=== PATIENT | female | born 1990 | race Caucasian/White ===

== ENCOUNTER 2016-09-19 19:21 | Emergency (ER) | payer SELFPAY ==
[2016-09-19 19:25] VITALS: BP 125/65; BMI 30.1
--- NOTE | 2016-09-19 20:24 | DR.EXTPAIN ---
HPI - Time seen Time seen: 20:20 - PCP Primary Care Physician: NFD - Complaint/Symptoms Chief Complaint:: PT STATES SHE HAS AN ABCESS ON HER VAGINA FOR TWO WEEKS. - Source History Provided: Patient - Mode of arrival Mode of Arrival: Ambulatory - Timing Onset of Chief Complaint: 09/05/16 PMH - PMH Past Medical History: No Past Surgical History: No Surgical History: - Family History History of Family Medical Conditions: Yes Family Medical History: Diabetes Mellitus, [place], Hypertension - Social History Alcohol Use: None Do you use any recreational Drugs:: No Lives With: Alone Lives Where: Home - infectious screening In the last 2 months have you had wt loss of >10#?: NO Have you had fever, night sweats or hemotysis?: No Have you traveled outside the country in the last 6 months?: No Isolation: Standard ROS - Review of Systems Eyes: No Symptoms Reported ENTM: No Symptoms Reported Respiratoy: No Symptoms Reported Cardiovascular: No Symptoms Reported Gastrointestinal/Abdominal: No Symptoms Reported Genitourinary: No Symptoms Reported Neurological: No Symptoms Reported Musculoskeletal: No Symptoms Reported Integumentary: No Symptoms Reported Hematologic/Lymphatic: No Symptoms Reported Endocrine: No Symptoms Reported Psychiatric: No Symptoms Reported All Other Systems: Reviewed and Negative PE - Vital Signs Vitals: Temperature 98.3 F Pulse Rate 57 Respiratory Rate 20 Blood Pressure [Left Arm] 119/68 Blood Pressure [Right Arm] 110/51 Blood Pressure 125/65 O2 Sat by Pulse Oximetry 100 - General Limitations: No Limitations General Appearance: Alert, In No Apparent Distress - Head Head Exam: Normal Inspection, Atraumatic - Eyes Eye exam: Normal Appearance, PERRL, EOMI - ENT ENT Exam: Normal Exam - Neck Neck Exam: Normal Inspection, Full ROM, Trachea Midline - Chest Chest Inspection: Normal Inspection - Respiratory Respiratory Exam: Normal Lung Sounds Bilat Respiratory Exam: Bilateral Clear to Auscultation - Cardiovascular Cardiovascular Exam: Regular Rate, Normal Rhythm - Abdominal Exam Abdominal Exam: Normal Inspection, Normal Bowel Sounds Abdominal Tenderness: negative: RUQ, RLQ, LUQ, LLQ, Epigastrium, Suprapubic, Diffuse, Mild, Moderate, Severe, Other - Extremities Extremities Exam: Normal Inspection, Full ROM - Upper Extremities Shoulder Exam: Normal Inspection Arm Exam: Normal Inspection, Full ROM Elbow Exam: Normal Inspection Forearm Exam: Normal Inspection Hand Exam: Normal Inspection, Tenderness Neuromotor Exam: Normal Exam Neurosensory Exam: Normal Exam Hand Tendon Exam: Flexor Digitorium Profundus (Location) Upper Ext. Vascular Exam: Capillary Refill, Radial Pulse - Lower Extremities Hip/Pelvis Exam: Normal Inspection, Full ROM Upper Leg Exam: Normal Inspection Knee Exam: Normal Inspection Lower Leg Exam: Normal Inspection Ankle Exam: Normal Inspection Foot/Toe Exam: Normal Inspection Neurovascular/Tendon Exam: Normal Capillary Refill Gait Exam: Observed and Normal - Back Back Exam: Normal Inspection, Full ROM - Neurological Neurological Exam: Alert, Oriented X3, CN II-XII Intact - Psychiatric Psychiatric Exam: Normal Affect, Normal Mood - Skin Skin Exam: Warm, Dry, Intact, Other (There is firm nodule left lateral moms pubis, non erythematous, tender) - Diagnosis Discharge Problem: Carbuncle - Discharge Plan Condition: Stable - Follow ups/Referrals Follow ups/Referrals: NFD,None [Primary Care Provider] - 3 days - Instructions
== END 2016-09-19 20:33 | disposition home or self-care (01) ==
LOC: ER 19:31
DX: L02.93 Carbuncle, unspecified (principal)
CPT/HCPCS: 99281; 99282

== ENCOUNTER 2017-06-21 04:53 | Emergency (ER) | payer OTHER ==
[2017-06-21 05:03] VITALS: BP 118/78; BMI 30.4
[2017-06-21 06:07] LABS: BILIRUBIN,URINE NEGATIVE (NEGATIVE); BLOOD/HEMOGLOBIN,URINE 2+ (NEGATIVE); GLUCOSE, URINE NEGATIVE (NEGATIVE); KETONES,URINE NEGATIVE (NEGATIVE); LEUKOCYTE ESTERASE ,URINE 3+ (NEGATIVE); NITRITES,URINE NEGATIVE (NEGATIVE); PH,URINE 6.5 (5.0 - 8.0); PROTEIN,URINE 4+ (NEGATIVE); UROBILINOGEN,URINE 2+ (NORMAL)
[2017-06-21 06:20] LABS: AMORPHOUS SEDIMENT,UR 2+ /HPF (NEGATIVE); APPEARANCE,URINE HAZY (CLEAR); BACTERIA,URINE TRACE /HPF (NEGATIVE); COLOR,URINE YELLOW (YELLOW); MUCUS,URINE MODERATE /HPF (NEGATIVE); SQUAMOUS EPITHELIAL CELL,UR MANY /HPF (NEGATIVE); TRICHOMONAS,URINE MODERATE /HPF (NEGATIVE)
[2017-06-21] MEDS ORDERED: BRETHINE INJ 1 MG VIAL SC ONE ×2 (06:34→06:51)
[2017-06-21] MEDS ORDERED: NS 1000 ML 1,000 ML ONE (06:34)
[2017-06-21] MEDS ORDERED: FLAGYL IV PREMIX 500 MG BAG 500 MG/100 ML BAG IV ONE ×2 (06:35→06:51)
[2017-06-21] MEDS ORDERED: NS 1000 ML 1,000 ML IV ONE (06:51)
--- NOTE | 2017-06-21 09:12 | DR.GENAD ---
HPI - PCP Primary Care Physician: SATISH - Complaint/Symptoms Chief Complaint:: PT STATES" I STARTED BLEEDING I WOKE UP AND HAD BLOOD IN MY UNDERWEAR. THE BABY WAS MOVING YESTERDAY BUT I HAVN'T FELT HIM MOVE TONIGHT" - Source History Provided: Patient - Mode of Arrival Mode of Arrival: Ambulatory - Timing Onset of Chief Complaint: 06/19/17 PMH - PMH Past Medical History: Yes Past Medical History: Anemia Past Surgical History: Yes Surgical History: - Family History History of Family Medical Conditions: Yes Family Medical History: Diabetes Mellitus, [place], Hypertension - Social History Does any household member use tobacco: No Alcohol Use: None Do you use any recreational Drugs:: No Lives With: Family Lives Where: Home - infectious screening In the last 2 months have you had wt loss of >10#?: NO Have you had fever, night sweats or hemotysis?: No Have you traveled outside the country in the last 6 months?: No Isolation: Standard PE - Vital Signs Vitals: Temperature 97.9 F Pulse Rate 61 Respiratory Rate 18 Blood Pressure [Left Arm] 119/68 Blood Pressure [Right Arm] 110/51 Blood Pressure 118/78 O2 Sat by Pulse Oximetry 100 ROR - Labs Reviewed Laboratory: Specimen Type Clean catch urine 06/21/17 05:51 Urine Color Yellow (YELLOW) 06/21/17 05:51 Urine Appearance Hazy (CLEAR) 06/21/17 05:51 Urine pH 6.5 (5.0 - 8.0) 06/21/17 05:51 Ur Specific Anderson 1.015 (1.000-1.030) 06/21/17 05:51 Urine Protein 4+ (NEGATIVE) 06/21/17 05:51 Urine Glucose (UA) Negative (NEGATIVE) 06/21/17 05:51 Urine Ketones Negative (NEGATIVE) 06/21/17 05:51 Urine Occult Blood 2+ (NEGATIVE) 06/21/17 05:51 Urine Nitrite Negative (NEGATIVE) 06/21/17 05:51 Urine Bilirubin Negative (NEGATIVE) 06/21/17 05:51 Urine Urobilinogen 2+ (NORMAL) 06/21/17 05:51 Ur Leukocyte Esterase 3+ (NEGATIVE) 06/21/17 05:51 Urine RBC 10-20 /HPF (NONE SEEN) 06/21/17 05:51 Urine WBC 5-10 /HPF (NONE SEEN) 06/21/17 05:51 Ur Squamous Epith Cells Many /HPF (NEGATIVE) 06/21/17 05:51 Amorphous Sediment 2+ /HPF (NEGATIVE) 06/21/17 05:51 Urine Bacteria Trace /HPF (NEGATIVE) 06/21/17 05:51 Urine Mucus Moderate /HPF (NEGATIVE) 06/21/17 05:51 Urine Trichomonas Moderate /HPF (NEGATIVE) 06/21/17 05:51 Ur Culture Indicated? No/not indicated 06/21/17 05:51 - Discharge Plan Disposition: HOME, SELF-CARE Condition: Stable Prescriptions: Metronidazole [Flagyl Tab 500 mg] 500 mg PO QID 5 Days tab - Follow ups/Referrals Follow ups/Referrals: MESERET COVARRUBIAS [Primary Care Provider] - 3 days - Instructions Instructions: Floyd Alvares Contractions, Trichomoniasis, Preventing Sexually Transmitted Infections, Adult Additional Instructions: MAKE SURE TO TAKE ALL ANTIBIOTICS PRESCRIBED RETURN TO ER IF CONTRACTIONS INCREASE GREATER THAN 10 PER HOUR. IF WATER BREAKS OR HEAVY BLEEDING OCCURS RETURN TO ER. MAKE SURE THAT ALL SEXUAL PARTNERS ARE TREATED AND NO SEXUAL ACTIVITY UNTIL FINISHED WITH ANTIBIOTICS
== END 2017-06-21 07:47 | disposition home or self-care (01) ==
LOC: ER 04:53
DX: O60.02 Preterm labor without delivery, second trimester (principal); A59.9 Trichomoniasis, unspecified
CPT/HCPCS: 81001; 96365; 96372; 96374; 96375; 99284; A4222; S0030; J3105

== ENCOUNTER 2017-06-29 05:33 | Inpatient (IN) | payer OTHER ==
[2017-06-29 05:57] VITALS: BMI 30.4
[2017-06-29 06:13] LABS: BILIRUBIN,URINE NEGATIVE (NEGATIVE); BLOOD/HEMOGLOBIN,URINE 2+ (NEGATIVE); GLUCOSE, URINE NEGATIVE (NEGATIVE); KETONES,URINE NEGATIVE (NEGATIVE); LEUKOCYTE ESTERASE ,URINE 3+ (NEGATIVE); NITRITES,URINE NEGATIVE (NEGATIVE); PROTEIN,URINE 4+ (NEGATIVE); UROBILINOGEN,URINE 1+ (NORMAL)
--- NOTE | 2017-06-29 06:17 | DR.GENAD ---
HPI - PCP Primary Care Physician: florian - Complaint/Symptoms Chief Complaint:: contractions - Source History Provided: Patient - Mode of Arrival Mode of Arrival: Ambulatory - Timing Onset of Chief Complaint: 06/29/17 PMH - PMH Past Medical History: Yes Past Medical History: Anemia Past Surgical History: Yes Surgical History: - Family History History of Family Medical Conditions: Yes Family Medical History: Diabetes Mellitus, [place], Hypertension - Social History Does patient currently use any type of tobacco product: No Have you used tobacco products in the last 12 months: No Type of Tobacco Use: None Does any household member use tobacco: No Alcohol Use: None Do you use any recreational Drugs:: No Lives With: Family Lives Where: Home - infectious screening In the last 2 months have you had wt loss of >10#?: NO Have you had fever, night sweats or hemotysis?: No Have you traveled outside the country in the last 6 months?: No Isolation: Standard PE - Vital Signs Vitals: Temperature 98 F Pulse Rate 64 Respiratory Rate 18 Blood Pressure [Left Arm] 119/68 Blood Pressure [Right Arm] 110/51 Blood Pressure 119/75 O2 Sat by Pulse Oximetry 99 - Discharge Plan Condition: Stable - Follow ups/Referrals Follow ups/Referrals: MESERET COVARRUBIAS [Primary Care Provider] - 3 days - Instructions
[2017-06-29 06:30] LABS: APPEARANCE,URINE HAZY (CLEAR); BACTERIA,URINE TRACE /HPF (NEGATIVE); COLOR,URINE YELLOW (YELLOW); SQUAMOUS EPITHELIAL CELL,UR MANY /HPF (NEGATIVE)
[2017-06-29 06:31] LABS: AMNISURE ROM TEST NO MEMBRANES RUPTURE (NO RUPTURE)
[2017-06-29] MEDS ORDERED: LR 1000 ML IV 1,000 ML IV ONE ×2 (10:38→11:07)
[2017-06-29] MEDS ORDERED: ANCEF 1 GM IV PREMIX* 1 GM/50 ML BAG IV ONE (10:39)
[2017-06-29] MEDS ORDERED: ADRENALINE CHL INJ ONE (10:53)
[2017-06-29] MEDS ORDERED: DURAMORPH ONE (10:53)
[2017-06-29] MEDS: LR 1000 ML IV 1,000 ML IV ONE ×2 (10:56→11:15)
[2017-06-29] MEDS ORDERED: ANCEF VIAL 1 GM 1 GM in NS 50 ML IV + SPIKE MINIBAG* 50 ML IV PRN (11:00)
[2017-06-29 11:08] LABS: BASOPHILS # (AUTO) 0.1 X10^3/uL (0.0-0.1); BASOPHILS % (AUTO) 0.5 % (0.2-1.0); EOSINOPHILS % (AUTO) 0.2 % (0.9-2.9); HEMATOCRIT 33.4 % (36.0-47.0); HEMOGLOBIN 10.8 g/dL (12.0-16.0); LYMPHOCYTES # (AUTO) 1.4 X10^3/uL (1.3-2.9); LYMPHOCYTES % (AUTO) 11.1 % (21.0-51.0); MEAN CORPUSCULAR HEMOGLOBIN 22.3 pg (27.0-34.0); MEAN CORPUSCULAR HGB CONC 32.4 g/dL (33.0-35.0); MEAN CORPUSCULAR VOLUME 68.8 fL (80.0-100.0); MEAN PLATELET VOLUME 8.8 fL (7.4-11.0); MONOCYTES # (AUTO) 0.3 x10^3/uL (0.3-0.8); NEUTROPHILS % (AUTO) 86.2 % (42.0-75.0); PLATELET COUNT 210 X10^3/uL (150.0-450.0); RED BLOOD COUNT 4.86 X10^6/uL (3.5-5.4); RED CELL DISTRIBUTION WIDTH 28.7 % (11.6-16.5); WHITE BLOOD COUNT 12.8 X10^3/uL (3.6-10.0)
[2017-06-29 11:19] LABS: ANISOCYTOSIS 3+; HYPOCHROMASIA 1+; MICROCYTOSIS 1+; PLATELET MORPHOLOGY COMMENT NORMAL (NORMAL)
[2017-06-29] MEDS: D5 1/2 NS 1L W PITOCIN 20 UNITS/L 20 UNITS/1,000 ML BAG IV ONE ×3 (11:19→11:39)
[2017-06-29 11:52] LABS: ALANINE AMINOTRANSFERASE 13 Units/L (12-78); ALBUMIN 2.3 g/dL (3.4-5.0); ALKALINE PHOSPHATASE 144 Units/L (46-116); ASPARTATE AMINO TRANSFERASE 17 Units/L (15-37); BLOOD UREA NITROGEN 7 mg/dL (7-18); CALCIUM 7.9 mg/dL (8.5-10.1); CHLORIDE 101 mmol/L (98-107); COR CA(FOR HYPOALB) 9.3 mg/dL (8.5-10.1); CREATININE 0.49 mg/dL (0.55-1.02); SODIUM 133 mmol/L (136-145); TOTAL PROTEIN 6.7 g/dL (6.4-8.2); eGFR BLACK RACES > 60 (>60); eGFR NON BLACK RACES > 60 (>60)
[2017-06-29] MEDS ORDERED: PHENERGAN INJ 25 MG IVP PRN (12:15)
[2017-06-29] MEDS ORDERED: ZOFRAN INJ 4 MG VIAL IVP PRN ×2 (12:15→12:37)
[2017-06-29] MEDS ORDERED: REGLAN INJ 10 MG VIAL IVP PRN ×2 (12:15→12:37)
[2017-06-29] MEDS ORDERED: BENADRYL INJ 50 MG VIAL IVP PRN ×2 (12:15→12:37)
[2017-06-29] MEDS: TORADOL 30 MG VIAL ONE ×2 (12:22→12:39)
[2017-06-29] MEDS ORDERED: ADACEL TDaP IM ONE (12:37)
[2017-06-29] MEDS ORDERED: PERCOCET TAB 5/325 MG PO PRN (12:37)
[2017-06-29] MEDS ORDERED: NARCAN INJ IVP PRN (12:37)
[2017-06-29] MEDS ORDERED: TORADOL 30 MG VIAL IVP PRN (12:37)
[2017-06-29] MEDS ORDERED: D5 1/2 NS 1000 ML 1,000 ML with PITOCIN 20 UNITS IV SCH ×2 (13:00)
[2017-06-29] MEDS: FERROUS GLUCONATE PO SCH ×2 (13:33→18:10)
[2017-06-29] MEDS ORDERED: PITOCIN ONE (15:22)
[2017-06-29] MEDS ORDERED: XYLOCAINE 2 % (PLAIN) ONE (15:22)
[2017-06-29] MEDS ORDERED: DIPRIVAN VIAL ONE (15:22)
[2017-06-29] MEDS ORDERED: MARCAINE SPINAL ONE (15:22)
[2017-06-29] MEDS ORDERED: ZOFRAN INJ 4 MG VIAL ONE (15:22)
[2017-06-29] MEDS: ZANTAC PO SCH (21:27)
[2017-06-30] MEDS: FERROUS GLUCONATE PO SCH ×2 (06:33→16:08)
[2017-06-30 06:35] LABS: HEMATOCRIT 28.9 % (36.0-47.0); HEMOGLOBIN 9.4 g/dL (12.0-16.0)
[2017-06-30] MEDS ORDERED: PERCOCET TAB 5/325 MG PO PRN (07:15)
[2017-06-30] MEDS: ZANTAC PO SCH ×2 (08:30→21:11)
[2017-06-30] MEDS: MYLICON TAB 80 MG CHEW PO PRN ×2 (08:30→21:11)
[2017-06-30] MEDS: COLACE CAP 100 MG PO SCH ×2 (08:30→21:11)
[2017-06-30] MEDS: PRENATAL PLUS PO SCH (08:30)
[2017-06-30] MEDS: MOTRIN TAB 800 MG PO PRN ×2 (12:18→22:56)
[2017-06-30] MEDS: BACTROBAN OINT TOP SCH ×2 (14:30→21:11)
[2017-07-01] MEDS: BACTROBAN OINT TOP SCH (06:11)
[2017-07-01] MEDS: FERROUS GLUCONATE PO SCH (06:11)
[2017-07-01 08:48] VITALS: BP 131/69
[2017-07-01] MEDS: ZANTAC PO SCH (10:14)
[2017-07-01] MEDS: COLACE CAP 100 MG PO SCH (10:14)
[2017-07-01] MEDS: PRENATAL PLUS PO SCH (10:14)
== END 2017-07-01 11:33 | disposition home or self-care (01) | DRG 766 ==
LOC: ER 05:33 → LD 11:00 → MED/SURG 12:48
PROVIDERS: ADMIT Specialist; ATTEND Specialist
PROC: 10D00Z1 Extraction of Products of Conception, Low, Open Approach (ICD-10-PCS; principal; 2017-06-29 11:45)
DX: O99.013 Anemia complicating pregnancy, third trimester (principal); O99.824 Streptococcus B carrier state complicating childbirth; D50.8 Other iron deficiency anemias; B95.1 Streptococcus, group B, as the cause of diseases classified elsewhere; O34.211 Maternal care for low transverse scar from previous cesarean delivery; N85.8 Other specified noninflammatory disorders of uterus; Z37.0 Single live birth; Z3A.39 39 weeks gestation of pregnancy
CPT/HCPCS: 36415; 80053; 80307; 81001; 84112; 85014; 85018; 85025; 86592; 86850; 86900; 86901; 87086; 96365; 99284; A4222; S0197; G0434; J0170; J0690; J1200; J1885; J2001; J2405; J2590; J3490; J7120

== ENCOUNTER 2019-11-21 13:17 | Observation (INO) ==
[2019-11-21 13:23] VITALS: BMI 30.1
[2019-11-21] MEDS ORDERED: CATAPRES TAB 0.2 MG PO ONE (13:39)
--- NOTE | 2019-11-21 13:39 | DR.GENAD ---
HPI Time Seen Time Seen by Provider: 11/21/19 13:32 PCP Primary Care Physician: dorina Complaint/Symptoms Chief Complaint:: PT C/O 2 DAYS OF GENERALIZED SWELLING INTO LEGS TO THE POINT SHE COULDN'T GET OUT OF BED. THE SWELLING IN HER LEGS WENT AWAY TODAY AND THEN THIS MORNING SHE WOKE UP WITH SWELLING TO THE RIGHT SIDE OF HER FACE. COVID-19 Coronavirus risk:travel/contact w/high risk person: No Has patient experienced Coronavirus symptoms: No Source History Provided: Patient Mode of Arrival Mode of Arrival: Ambulatory Timing Onset of Chief Complaint: 11/21/19 Came on: Gradually Duration Duration: Constant (right face swelling) How lon Duration: Days Location Location: right face Severity Severity: Mild Modifying Factors Worsens:: unknown Associated Signs and Symptoms Associated Signs and Symptoms: none PMH PMH Past Medical History: Yes Past Medical History: Anemia Past Medical History Comment: HEART MURMUR Past Surgical History: Yes Surgical History: Family History History of Family Medical Conditions: Yes Family Medical History: Diabetes Mellitus, [place], Coronary Artery Disease and Hypertension Social History Does patient currently use any type of tobacco product: No Have you used tobacco products in the last 12 months: No Type of Tobacco Use: None Does any household member use tobacco: No Alcohol Use: None Do you use any recreational Drugs:: No Lives With: Alone Lives Where: Home Travel Risk Coronavirus risk:travel/contact w/high risk person: No Has patient experienced Coronavirus symptoms: No Infectious screening In the last 2 months have you had wt loss of >10#?: NO Have you had fever, night sweats or hemotysis?: No Have you traveled outside the country in the last 6 months?: No Isolation: Standard ROS Review of Systems Constitutional: No Symptoms Reported Eyes: No Symptoms Reported ENTM: No Symptoms Reported and See HPI (right face swelling) Respiratoy: No Symptoms Reported Cardiovascular: No Symptoms Reported Gastrointestinal/Abdominal: No Symptoms Reported Genitourinary: No Symptoms Reported Neurological: No Symptoms Reported Musculoskeletal: No Symptoms Reported Integumentary: No Symptoms Reported Hematologic/Lymphatic: No Symptoms Reported Endocrine: No Symptoms Reported Psychiatric: No Symptoms Reported All Other Systems: Reviewed and Negative PE Vital Signs Vitals: Temperature 97.9 F Pulse Rate 89 Respiratory Rate 20 Blood Pressure [Left Arm] 155/89 Blood Pressure [Right Arm] 128/67 Blood Pressure 180/81 O2 Sat by Pulse Oximetry 98 General Limitations: No Limitations General Appearance: Alert and In No Apparent Distress Head Head Exam: Normal Inspection, Atraumatic and Normocephalic Eyes Eye exam: Normal Appearance and EOMI ENT ENT Exam: Normal Exam, Normal Oropharynx, Normal External Ear Exam and Mucous Membranes Moist External Ear Exam: Normal External Inspection Nose Exam: Normal Nose Exam Mouth Exam: Normal Inspection; negative Tongue Elevation and Tongue Swelling Throat Exam: Normal Inspection Neck Neck Exam: Normal Inspection, Full ROM and Trachea Midline Chest Chest Inspection: Normal Inspection Respiratory Respiratory Exam: Normal Lung Sounds Bilat Respiratory Exam: Bilateral: Clear to Auscultation Cardiovascular Cardiovascular Exam: Regular Rate Abdominal Exam Abdominal Exam: Normal Inspection Extremities Extremities Exam: Normal Inspection and Full ROM Back Back Exam: Normal Inspection Neurologic Neurological Exam: Alert, Oriented X3 and CN II-XII Intact Psychiatric Psychiatric Exam: Normal Affect Skin Skin Exam: Normal Color and Other (right face swelling) COURSE Consultation Called: 14:56 Call Returned: 14:56 Consultation Comments: case discussed with DR. Stanford admit for 2 units PRBC, get anemia panel and give [id number]. ROR Labs Reviewed Result Diagrams: 11/21/19 14:07 11/21/19 14:07 Laboratory: WBC 6.7 X10^3/uL (3.6-10.0) 11/21/19 14:07 RBC 3.49 X10^6/uL (3.5-5.4) L 11/21/19 14:07 Hgb 6.8 g/dL (12.0-16.0) L* 11/21/19 14:07 Hct 21.8 % (36.0-47.0) L 11/21/19 14:07 MCV 62.6 fL (80.0-100.0) L 11/21/19 14:07 MCH 19.5 pg (27.0-34.0) L 11/21/19 14:07 MCHC 31.2 g/dL (33.0-35.0) L 11/21/19 14:07 RDW 19.3 % (11.6-16.5) H 11/21/19 14:07 Plt Count 247 X10^3/uL (150.0-450.0) 11/21/19 14:07 Plt Count Comment Adequate (ADEQUATE) 11/21/19 14:07 MPV 8.6 fL (7.4-11.0) 11/21/19 14:07 Neut % (Auto) 60.0 % (42.0-75.0) 11/21/19 14:07 Lymph % (Auto) 29.7 % (21.0-51.0) 11/21/19 14:07 [place] % (Auto) 5.9 % (0.0-13.0) 11/21/19 14:07 Eos % (Auto) 3.6 % (0.9-2.9) H 11/21/19 14:07 Baso % (Auto) 0.8 % (0.2-1.0) 11/21/19 14:07 Neut # (Auto) 4.0 x10^3/uL (2.2-4.8) 11/21/19 14:07 Lymph # (Auto) 2.0 X10^3/uL (1.3-2.9) 11/21/19 14:07 [place] # (Auto) 0.4 x10^3/uL (0.3-0.8) 11/21/19 14:07 Eos # (Auto) 0.2 x10^3/uL (0.0-0.2) 11/21/19 14:07 Baso # (Auto) 0.1 X10^3/uL (0.0-0.1) 11/21/19 14:07 Absolute Nucleated RBC 0.0 /100WBC 11/21/19 14:07 Plt Morphology Comment Normal (NORMAL) 11/21/19 14:07 RBC Morphology Abnormal (NORMAL) A 11/21/19 14:07 Hypochromasia 3+ A 11/21/19 14:07 Microcytosis 2+ A 11/21/19 14:07 Sodium 140 mmol/L (136-145) 11/21/19 14:07 Corrected Sodium TNP 11/21/19 14:07 Potassium 4.0 mmol/L (3.5-5.1) 11/21/19 14:07 Chloride 108 mmol/L (98-107) H 11/21/19 14:07 Carbon Dioxide 26.2 mmol/L (21-32) 11/21/19 14:07 BUN 11 mg/dL (7-18) 11/21/19 14:07 Creatinine 0.71 mg/dL (0.55-1.02) 11/21/19 14:07 Est GFR (MDRD) Af Amer > 60 (>60) 11/21/19 14:07 Est GFR (MDRD) Non-Af > 60 (>60) 11/21/19 14:07 Glucose 84 mg/dL (65-99) 11/21/19 14:07 Calcium 8.2 mg/dL (8.5-10.1) L 11/21/19 14:07 Corrected Calcium 10.1 mg/dL (8.5-10.1) 11/21/19 14:07 Iron 15 ug/dL (50-175) L 11/21/19 14:07 Transferrin 199 mg/dL (202-364) L 11/21/19 14:07 Ferritin 6 ng/mL (8-252) L 11/21/19 14:07 Total Bilirubin 0.10 mg/dL (0.2-1.0) L 11/21/19 14:07 AST 22 Units/L (15-37) 11/21/19 14:07 ALT 15 Units/L (12-78) 11/21/19 14:07 Alkaline Phosphatase 50 Units/L (46-116) 11/21/19 14:07 Total Protein 5.4 g/dL (6.4-8.2) L 11/21/19 14:07 Albumin 1.6 g/dL (3.4-5.0) L 11/21/19 14:07 Globulin 3.8 g/dL (2.5-4.5) 11/21/19 14:07 Albumin/Globulin Ratio 0.4 Ratio (1.1-2.1) L 11/21/19 14:07 Vitamin B12 444 pg/mL (193-986) 11/21/19 14:07 Folate 11.5 ng/mL (>8.6) 11/21/19 14:07 Opioid Opioid Risk Tool Age (Aaron box if 16-45): Yes History of Preadolescent Sexual Abuse: No Total: 1 Total Score Risk Category: Low Risk Copyright: Felix FABIAN predicting aberrant behaviors Instructions Forms: Precautions for COVID19 Patient Portal Social Distancing
[2019-11-21] MEDS ORDERED: LASIX PO ONE (13:40)
[2019-11-21] MEDS ORDERED: LASIX ONE (13:42)
[2019-11-21] MEDS ORDERED: CATAPRES TAB 0.2 MG ONE (13:42)
[2019-11-21 14:27] LABS: BASOPHILS # (AUTO) 0.1 X10^3/uL (0.0-0.1); BASOPHILS % (AUTO) 0.8 % (0.2-1.0); EOSINOPHILS # (AUTO) 0.2 x10^3/uL (0.0-0.2); EOSINOPHILS % (AUTO) 3.6 % (0.9-2.9); HEMATOCRIT 21.8 % (36.0-47.0); LYMPHOCYTES % (AUTO) 29.7 % (21.0-51.0); MEAN CORPUSCULAR HEMOGLOBIN 19.5 pg (27.0-34.0); MEAN CORPUSCULAR HGB CONC 31.2 g/dL (33.0-35.0); MEAN CORPUSCULAR VOLUME 62.6 fL (80.0-100.0); MEAN PLATELET VOLUME 8.6 fL (7.4-11.0); MONOCYTES # (AUTO) 0.4 x10^3/uL (0.3-0.8); MONOCYTES % (AUTO) 5.9 % (0.0-13.0); PLATELET COUNT 247 X10^3/uL (150.0-450.0); RED BLOOD COUNT 3.49 X10^6/uL (3.5-5.4); RED CELL DISTRIBUTION WIDTH 19.3 % (11.6-16.5); WHITE BLOOD COUNT 6.7 X10^3/uL (3.6-10.0)
[2019-11-21 14:36] LABS: ALANINE AMINOTRANSFERASE 15 Units/L (12-78); ALBUMIN 1.6 g/dL (3.4-5.0); ALKALINE PHOSPHATASE 50 Units/L (46-116); ASPARTATE AMINO TRANSFERASE 22 Units/L (15-37); BLOOD UREA NITROGEN 11 mg/dL (7-18); CALCIUM 8.2 mg/dL (8.5-10.1); CARBON DIOXIDE 26.2 mmol/L (21-32); CHLORIDE 108 mmol/L (98-107); COR CA(FOR HYPOALB) 10.1 mg/dL (8.5-10.1); CREATININE 0.71 mg/dL (0.55-1.02); SODIUM 140 mmol/L (136-145); TOTAL PROTEIN 5.4 g/dL (6.4-8.2); eGFR NON BLACK RACES > 60 (>60)
[2019-11-21 14:38] LABS: HEMOGLOBIN 6.8 g/dL (12.0-16.0)
[2019-11-21 14:50] LABS: HYPOCHROMASIA 3+; MICROCYTOSIS 2+; PLATELET MORPHOLOGY COMMENT NORMAL (NORMAL)
[2019-11-21] MEDS ORDERED: NS 100 ML IV 100 ML with VENOFER 400 MG IV NR ×2 (15:03)
[2019-11-21 20:29] LABS: BILIRUBIN,URINE NEGATIVE (NEGATIVE); BLOOD/HEMOGLOBIN,URINE 2+ (NEGATIVE); GLUCOSE, URINE NEGATIVE (NEGATIVE); KETONES,URINE NEGATIVE (NEGATIVE); LEUKOCYTE ESTERASE ,URINE NEGATIVE (NEGATIVE); NITRITES,URINE NEGATIVE (NEGATIVE); PROTEIN,URINE 3+ (NEGATIVE); UROBILINOGEN,URINE NORMAL (NORMAL)
[2019-11-21 20:33] LABS: APPEARANCE,URINE CLEAR (CLEAR); COLOR,URINE YELLOW (YELLOW)
[2019-11-21 20:34] LABS: BACTERIA,URINE NEGATIVE /HPF (NEGATIVE); SQUAMOUS EPITHELIAL CELL,UR NEGATIVE /HPF (NEGATIVE)
[2019-11-21] MEDS ORDERED: NS 500 ML IV 500 ML IV ONE ×2 (21:15→21:19)
[2019-11-22 06:04] LABS: BASOPHILS % (AUTO) 0.5 % (0.2-1.0); EOSINOPHILS # (AUTO) 0.4 x10^3/uL (0.0-0.2); EOSINOPHILS % (AUTO) 4.2 % (0.9-2.9); HEMATOCRIT 25.7 % (36.0-47.0); HEMOGLOBIN 8.2 g/dL (12.0-16.0); LYMPHOCYTES # (AUTO) 2.4 X10^3/uL (1.3-2.9); LYMPHOCYTES % (AUTO) 28.6 % (21.0-51.0); MEAN CORPUSCULAR HEMOGLOBIN 21.4 pg (27.0-34.0); MEAN CORPUSCULAR HGB CONC 32.1 g/dL (33.0-35.0); MEAN CORPUSCULAR VOLUME 66.7 fL (80.0-100.0); MEAN PLATELET VOLUME 8.3 fL (7.4-11.0); MONOCYTES # (AUTO) 0.4 x10^3/uL (0.3-0.8); MONOCYTES % (AUTO) 5.2 % (0.0-13.0); NEUTROPHILS # (AUTO) 5.2 x10^3/uL (2.2-4.8); NEUTROPHILS % (AUTO) 61.5 % (42.0-75.0); PLATELET COUNT 224 X10^3/uL (150.0-450.0); RED BLOOD COUNT 3.85 X10^6/uL (3.5-5.4); RED CELL DISTRIBUTION WIDTH 24.2 % (11.6-16.5); WHITE BLOOD COUNT 8.4 X10^3/uL (3.6-10.0)
[2019-11-22 06:35] LABS: ANISOCYTOSIS 2+; HYPOCHROMASIA 2+; MICROCYTOSIS 1+; PLATELET MORPHOLOGY COMMENT NORMAL (NORMAL)
[2019-11-22] MEDS ORDERED: NS 100 ML IV 100 ML with VENOFER 400 MG IV NR ×2 (08:00)
[2019-11-22] MEDS: ZESTRIL TAB 40 MG PO SCH (08:55)
[2019-11-23 06:24] LABS: BASOPHILS % (AUTO) 0.5 % (0.2-1.0); EOSINOPHILS # (AUTO) 0.3 x10^3/uL (0.0-0.2); EOSINOPHILS % (AUTO) 4.1 % (0.9-2.9); HEMATOCRIT 25.2 % (36.0-47.0); HEMOGLOBIN 8.1 g/dL (12.0-16.0); LYMPHOCYTES # (AUTO) 2.7 X10^3/uL (1.3-2.9); LYMPHOCYTES % (AUTO) 34.8 % (21.0-51.0); MEAN CORPUSCULAR HEMOGLOBIN 21.5 pg (27.0-34.0); MEAN CORPUSCULAR HGB CONC 32.3 g/dL (33.0-35.0); MEAN CORPUSCULAR VOLUME 66.5 fL (80.0-100.0); MEAN PLATELET VOLUME 8.6 fL (7.4-11.0); MONOCYTES # (AUTO) 0.4 x10^3/uL (0.3-0.8); MONOCYTES % (AUTO) 5.7 % (0.0-13.0); NEUTROPHILS # (AUTO) 4.2 x10^3/uL (2.2-4.8); NEUTROPHILS % (AUTO) 54.9 % (42.0-75.0); PLATELET COUNT 222 X10^3/uL (150.0-450.0); RED BLOOD COUNT 3.78 X10^6/uL (3.5-5.4); RED CELL DISTRIBUTION WIDTH 23.6 % (11.6-16.5); WHITE BLOOD COUNT 7.7 X10^3/uL (3.6-10.0)
[2019-11-23 06:39] LABS: ALANINE AMINOTRANSFERASE 14 Units/L (12-78); ALBUMIN 1.3 g/dL (3.4-5.0); ALKALINE PHOSPHATASE 46 Units/L (46-116); ASPARTATE AMINO TRANSFERASE 16 Units/L (15-37); BLOOD UREA NITROGEN 9 mg/dL (7-18); CALCIUM 7.8 mg/dL (8.5-10.1); CARBON DIOXIDE 25.6 mmol/L (21-32); CHLORIDE 109 mmol/L (98-107); CREATININE 0.66 mg/dL (0.55-1.02); SODIUM 141 mmol/L (136-145); TOTAL PROTEIN 4.8 g/dL (6.4-8.2); eGFR NON BLACK RACES > 60 (>60)
[2019-11-23 06:51] LABS: ANISOCYTOSIS 2+; HYPOCHROMASIA 2+; MICROCYTOSIS 1+; PLATELET MORPHOLOGY COMMENT NORMAL (NORMAL)
[2019-11-23] MEDS: ZESTRIL TAB 40 MG PO SCH (08:00)
[2019-11-23] MEDS ORDERED: NS 100 ML IV 100 ML with VENOFER 400 MG IV ONE ×2 (10:52)
[2019-11-23] MEDS: APRESOLINE TAB 25 MG PO STA ×2 (11:32→15:50)
[2019-11-23 11:56] LABS: CREATININE 24 HOUR,URINE 2.06 g/24 hr (0.67-1.59); CREATININE,URINE 66.34 mg/dL (29-226)
[2019-11-23 11:57] LABS: TOTAL PROTEIN,URINE 347.7 mg/dl (0-11.9)
[2019-11-23 12:27] LABS: CREATININE 0.66 mg/dL (0.55-1.02); CREATININE CLEARANCE,URINE 216.4 ml/min (87-107); CREATININE,URINE 66.34 mg/dL (29-226)
[2019-11-23] MEDS ORDERED: APRESOLINE TAB 25 MG ONE ×2 (15:50→19:05)
[2019-11-23] MEDS ORDERED: APRESOLINE TAB 25 MG PO ONE (15:55)
[2019-11-23 15:59] VITALS: BP 204/93
[2019-11-23] MEDS ORDERED: CATAPRES TAB 0.2 MG ONE (17:08)
[2019-11-23] MEDS ORDERED: NORCO 7.5/325 MG TAB ONE (17:14)
== END 2019-11-23 19:10 | disposition home or self-care (01) ==
LOC: ER 13:17 → MED/SURG 13:17
PROVIDERS: ADMIT Obstetrics & Gynecology Obstetrics; ATTEND Obstetrics & Gynecology Obstetrics
DX: I10 Essential (primary) hypertension; D64.9 Anemia, unspecified; R60.0 Localized edema; R53.1 Weakness

== ENCOUNTER 2021-09-26 08:25 | Inpatient (IN) ==
--- NOTE | 2021-09-26 09:26 | DR.CP ---
HPI Time Seen Time Seen by Provider: 09/26/21 09:26 PCP Primary Care Physician: none HPI Comment HPI Comment: PATIENT IS 31YR OLD FEMALE IN ER WITH LEFT SIDED CHEST PAIN RADIATING TO LEFT ARM SINCE LAST NIGHT. Complaint Chief Complaint Doctor Comments: CHEST PAIN SINCE LAST NIGHT. Chief Complaint:: chest pain since last night; my heart feels like it is pumping hard. COVID-19 Coronavirus risk:travel/contact w/high risk person: No Has patient experienced Coronavirus symptoms: No Source History Provided: Patient Mode of Arrival Mode of Arrival: Ambulatory Timing Onset of Chief Complaint: 09/25/21 PMH PMH Past Medical History: Yes Past Medical History: Anemia, Hypertension and Renal Disease Past Surgical History: Yes Surgical History: and Other Family History History of Family Medical Conditions: Yes Family Medical History: Diabetes Mellitus, [place], Coronary Artery Disease and Hypertension Social History Does patient currently use any type of tobacco product: No Have you used tobacco products in the last 12 months: No Type of Tobacco Use: None Does any household member use tobacco: No Alcohol Use: None Do you use any recreational Drugs:: No Lives With: Family Lives Where: Home Travel Risk Coronavirus risk:travel/contact w/high risk person: No Has patient experienced Coronavirus symptoms: No Infectious screening In the last 2 months have you had wt loss of >10#?: NO Have you had fever, night sweats or hemotysis?: No Have you traveled outside the country in the last 6 months?: No Isolation: Standard PE Vitals Vitals: Temperature 97.2 F Pulse Rate 52 Respiratory Rate 36 Blood Pressure [Left Arm] 190/90 Blood Pressure [Right Arm] 128/67 Blood Pressure 162/67 O2 Sat by Pulse Oximetry 100 ROR Labs Reviewed Result Diagrams: 09/26/21 09:37 09/26/21 09:37 Laboratory: WBC 6.3 X10^3/uL (3.6-10.0) 09/26/21 09:37 RBC 3.74 X10^6/uL (3.5-5.4) 09/26/21 09:37 Hgb 7.2 g/dL (12.0-16.0) L 09/26/21 09:37 Hct 22.7 % (36.0-47.0) L 09/26/21 09:37 MCV 60.8 fL (80.0-100.0) L 09/26/21 09:37 MCH 19.4 pg (27.0-34.0) L 09/26/21 09:37 MCHC 31.9 g/dL (33.0-35.0) L 09/26/21 09:37 RDW 18.7 % (11.6-16.5) H 09/26/21 09:37 Plt Count 298 X10^3/uL (150.0-450.0) 09/26/21 09:37 Plt Count Comment Adequate (ADEQUATE) 09/26/21 09:37 MPV 7.2 fL (7.4-11.0) L 09/26/21 09:37 Neut % (Auto) 57.1 % (42.0-75.0) 09/26/21 09:37 Lymph % (Auto) 33.0 % (21.0-51.0) 09/26/21 09:37 [place] % (Auto) 6.0 % (0.0-13.0) 09/26/21 09:37 Eos % (Auto) 3.0 % (0.9-2.9) H 09/26/21 09:37 Baso % (Auto) 0.9 % (0.2-1.0) 09/26/21 09:37 Neut # (Auto) 3.6 x10^3/uL (2.2-4.8) 09/26/21 09:37 Lymph # (Auto) 2.1 X10^3/uL (1.3-2.9) 09/26/21 09:37 [place] # (Auto) 0.4 x10^3/uL (0.3-0.8) 09/26/21 09:37 Eos # (Auto) 0.2 x10^3/uL (0.0-0.2) 09/26/21 09:37 Baso # (Auto) 0.1 X10^3/uL (0.0-0.1) 09/26/21 09:37 Absolute Nucleated RBC 0.0 /100WBC 09/26/21 09:37 Plt Morphology Comment Normal (NORMAL) 09/26/21 09:37 RBC Morphology Abnormal (NORMAL) A 09/26/21 09:37 Hypochromasia 3+ A 09/26/21 09:37 Poikilocytosis Slight A 09/26/21 09:37 Anisocytosis Slight A 09/26/21 09:37 Microcytosis 2+ A 09/26/21 09:37 Ovalocytes Present 09/26/21 09:37 D-Dimer 1.14 ug/ml (0.0-0.57) H 09/26/21 09:37 Sodium 139 mmol/L (136-145) 09/26/21 09:37 Corrected Sodium TNP 09/26/21 09:37 Potassium 3.6 mmol/L (3.5-5.1) 09/26/21 09:37 Chloride 107 mmol/L (98-107) 09/26/21 09:37 Carbon Dioxide 26.6 mmol/L (21-32) 09/26/21 09:37 BUN 8 mg/dL (7-18) 09/26/21 09:37 Creatinine 0.56 mg/dL (0.55-1.02) 09/26/21 09:37 Est GFR (MDRD) Af Amer > 60 (>60) 09/26/21 09:37 Est GFR (MDRD) Non-Af > 60 (>60) 09/26/21 09:37 Glucose 84 mg/dL (65-99) 09/26/21 09:37 Calcium 7.7 mg/dL (8.5-10.1) L 09/26/21 09:37 Corrected Calcium 9.5 mg/dL (8.5-10.1) 09/26/21 09:37 Iron 22 ug/dL (50-175) L 09/26/21 09:37 Transferrin 241 mg/dL (202-364) 09/26/21 09:37 Ferritin 7 ng/mL (8-252) L 09/26/21 09:37 Total Bilirubin 0.10 mg/dL (0.2-1.0) L 09/26/21 09:37 AST 21 Units/L (15-37) 09/26/21 09:37 ALT 18 Units/L (12-78) 09/26/21 09:37 Alkaline Phosphatase 58 Units/L (46-116) 09/26/21 09:37 Creatine Kinase 76 Units/L (26-192) 09/26/21 09:37 Troponin I High Sens 24.6 ng/L (4.0-60.0) 09/26/21 09:37 Total Protein 5.1 g/dL (6.4-8.2) L 09/26/21 09:37 Albumin 1.8 g/dL (3.4-5.0) L 09/26/21 09:37 Globulin 3.3 g/dL (2.5-4.5) 09/26/21 09:37 Albumin/Globulin Ratio 0.5 Ratio (1.1-2.1) L 09/26/21 09:37 Vitamin B12 520 pg/mL (193-986) 09/26/21 09:37 Folate 12.8 ng/mL (>8.6) 09/26/21 09:37 TSH 3rd Generation 2.689 uIU/mL (0.358-3.74) 09/26/21 09:37 Opioid Opioid Risk Tool Age (Aaron box if 16-45): No History of Preadolescent Sexual Abuse: No Total: 0 Total Score Risk Category: Low Risk Copyright: Felix FABIAN predicting aberrant behaviors Discharge Plan Diagnosis Discharge Problem: Chest pain, Anemia, Hypertension, Bradycardia Discharge Plan Patient Disposition: 09 ADMITTED INPATIENT Condition: Stable Orders to Discharge Patient Discharge Orders: Transfer (Routine); Ordered 09/26/21 Ordered By: GURJIT RINCON
[2021-09-26 09:50] LABS: BASOPHILS # (AUTO) 0.1 X10^3/uL (0.0-0.1); BASOPHILS % (AUTO) 0.9 % (0.2-1.0); EOSINOPHILS # (AUTO) 0.2 x10^3/uL (0.0-0.2); HEMATOCRIT 22.7 % (36.0-47.0); HEMOGLOBIN 7.2 g/dL (12.0-16.0); LYMPHOCYTES # (AUTO) 2.1 X10^3/uL (1.3-2.9); MEAN CORPUSCULAR HEMOGLOBIN 19.4 pg (27.0-34.0); MEAN CORPUSCULAR HGB CONC 31.9 g/dL (33.0-35.0); MEAN CORPUSCULAR VOLUME 60.8 fL (80.0-100.0); MEAN PLATELET VOLUME 7.2 fL (7.4-11.0); MONOCYTES # (AUTO) 0.4 x10^3/uL (0.3-0.8); NEUTROPHILS # (AUTO) 3.6 x10^3/uL (2.2-4.8); NEUTROPHILS % (AUTO) 57.1 % (42.0-75.0); RED BLOOD COUNT 3.74 X10^6/uL (3.5-5.4); RED CELL DISTRIBUTION WIDTH 18.7 % (11.6-16.5); WHITE BLOOD COUNT 6.3 X10^3/uL (3.6-10.0)
[2021-09-26] MEDS ORDERED: CATAPRES TAB 0.1 MG ONE (09:56)
[2021-09-26] MEDS ORDERED: CATAPRES TAB 0.1 MG PO ONE (09:58)
[2021-09-26 10:00] LABS: ALANINE AMINOTRANSFERASE 18 Units/L (12-78); ALBUMIN 1.8 g/dL (3.4-5.0); ALKALINE PHOSPHATASE 58 Units/L (46-116); ASPARTATE AMINO TRANSFERASE 21 Units/L (15-37); BLOOD UREA NITROGEN 8 mg/dL (7-18); CALCIUM 7.7 mg/dL (8.5-10.1); CARBON DIOXIDE 26.6 mmol/L (21-32); CHLORIDE 107 mmol/L (98-107); COR CA(FOR HYPOALB) 9.5 mg/dL (8.5-10.1); CREATINE KINASE 76 Units/L (26-192); CREATININE 0.56 mg/dL (0.55-1.02); SODIUM 139 mmol/L (136-145); TOTAL PROTEIN 5.1 g/dL (6.4-8.2); eGFR NON BLACK RACES > 60 (>60)
[2021-09-26 10:11] LABS: PLATELET MORPHOLOGY COMMENT NORMAL (NORMAL)
[2021-09-26 10:12] LABS: ANISOCYTOSIS SLIGHT; HYPOCHROMASIA 3+; MICROCYTOSIS 2+; OVALOCYTES PRESENT; POIKILOCYTOSIS SLIGHT
--- NOTE | 2021-09-26 10:20 | RAD ---
HISTORYChest painSTUDYChest AP [id number] t is within normal limits in size. Ivette are normal. Lung reynoso are clear. No pneumothorax or pleural effusion is identified. Bony thorax is unremarkable.IMPRESSIONNo significant abnormality identifiedElectronically signed by: GERMANIA CHRISTIAN (Sep 26, 2021 10:18:47)
--- NOTE | 2021-09-26 13:05 | CT ---
HISTORYelevated d dimer, chest painSTUDYCTA CHESTCOMPARISONChest radiograph from same day.TECHNIQUECTA chest protocol with axial images from the thoracic inlet to upper abdomen with IV contrast. Sagittal and coronal reformats and MIP images were created. Automated exposure control was utilized.FINDINGSThe visualized thyroid gland appears benign. Non-atherosclerotic normal caliber thoracic aorta. There is residual thymic tissue. Pulmonary artery is normal in caliber centrally. No filling defect is identified to suggest pulmonary embolism. The heart is normal in size. No pericardial effusion. No pathologic adenopathy in the thorax. Visualized upper abdomen has a benign appearance. Contrast in the renal collecting systems is noted. Bilateral cervical ribs. No acute osseous abnormality.The trachea and mainstem bronchi appear patent. No consolidation or segmental lung collapse. 3 x 2 mm lymph node adjacent to the right minor fissure image 70 series 5. There are few other small lymph nodes identified in the lungs adjacent to the pleura or fissures. Trace bilateral pleural effusions. No pneumothorax.IMPRESSIONNegative for PE. Trace bilateral pleural effusions.Residual thymic tissue is noted. Correlate for etiology of thymic hyperplasia or rebound.Electronically signed by: Quirino Esparza (Sep 26, 2021 13:03:46)
[2021-09-26 15:11] VITALS: BMI 30.1
[2021-09-26] MEDS: NS 1,000 ML IV 1,000 ML IV SCH (16:30)
[2021-09-26] MEDS: ZESTRIL TAB 40 MG PO SCH (16:30)
--- NOTE | 2021-09-26 18:00 | DR.H&P ---
H&P - History & Physical for Day of: H&P Date: 09/26/21 - Chief Complaint Chief Complaint: CHEST PAIN, ELEVATED BLOOD PRESSURE - History of Present Illness History of Present Illness: PT IS 31F, ER ADMISSION WITH CO LEFT SIDE CHEST PAIN WITH HYPERTENSIVE URGENCY. PT HAS PMH OF UNCONTROLLED HYPERTENSION AND HAS BEEN PREVIOUSLY UNDER THE CARE OF DR BARRY. PT HAS PMH OF ANEMIA. PT DENIES ANY BLOOD IN STOOL. PT DENIES FEVER OR COVID SYMPTOMS. PT ADMITTED FOR TREATMENT OF ACUTE ILLNESS - Past Medical History Past Medical History: Hypertension, Renal Disease, Anemia - Past Surgical History Surgical History: - Family History Family Medical History: Diabetes Mellitus, Heart Failure, Hypertension - Social History Does patient currently use any type of tobacco product: No Have you used tobacco products in the last 12 months: No Type of Tobacco Use: None Does any household member use tobacco: No Alcohol Use: None Drug Use: None - Medications Home Medications: No Known Drug Allergies Allergy (Verified 05/11/21 12:46) CONTINUE taking the following medications hydralazine 50 mg tablet 1 tab PO TID 09/26/21 [History] lisinopril 40 mg tablet 1 tab PO QDAY 09/26/21 [History] - Review of Systems Constitutional: Weakness, Malaise Eyes: No Symptoms Reported ENT: No Symptoms Reported Respiratory: SOB with Excertion Cardiovascular: Chest Pain, Palpitations Gastrointestinal: Other (heartburn) Genitourinary: No Symptoms Reported Musculoskeletal: No Symptoms Reported Skin: No Symptoms Reported Neurological: No Symptoms Reported - Physical Exam Vital Signs: Temperature 98.6 F Pulse Rate [Left] 61 Pulse Rate 54 Respiratory Rate 18 Blood Pressure [Left Arm] 190/90 Blood Pressure [Right Arm] 188/88 Blood Pressure 157/79 O2 Sat by Pulse Oximetry 99 Oriented: Normal Eyes: Normal Ear: Normal Nose: Normal Throat: Normal Respiratory: Clear Throughout Cardiovascular: Bradycardia, Murmur : Normal Auscultation: Bowel Sounds: Normal Palpation: Normal Tenderness: Normal Skin: Normal Musculoskeletal: Normal Psychiatric: Normal Mood Description: Calm Speech Pattern: Clear, Appropriate - Assessment/Plan (1) Hypertensive urgency Status: Acute Plan: ADMIT, CE AND EKG. CTA CHEST OBTAINED ON ADMISSION. ANEMIA PANEL, OCCULT STOOL. PPI THERAPY. TYPE AND CROSS, TRANSFUSE 2U PRBC PER PROTOCOL. BP CONTROL, CONTINUOUS CARDIAC MONITORING (2) Chest pain Status: Acute (3) Murmur, cardiac Status: Acute (4) Anemia Qualifiers: Anemia type: unspecified type Qualified Code(s): D64.9 - Anemia, unspecified Status: Acute - Allergies Allergies/Adverse Reactions: Allergies Allergy/AdvReac Type Severity Reaction Status Date / Time No Known Drug Allergies Allergy Verified 05/11/21 12:46
[2021-09-26 18:17] LABS: FREE T4 (FREE THYROXINE) 0.88 ng/dL (0.76-1.46); TSH (3RD GENERATION) 2.079 uIU/mL (0.358-3.74)
[2021-09-26] MEDS: HEMOCYTE-PLUS PO SCH (18:55)
[2021-09-26] MEDS: PROTONIX TAB 40 MG PO SCH (18:55)
[2021-09-26] MEDS ORDERED: APRESOLINE TAB 25 MG ONE (20:52)
[2021-09-26] MEDS: APRESOLINE TAB 25 MG PO SCH (21:00)
[2021-09-27] MEDS ORDERED: CATAPRES TAB 0.1 MG PO ONE (04:05)
[2021-09-27] MEDS ORDERED: CATAPRES TAB 0.1 MG ONE (04:17)
[2021-09-27] MEDS: NS 1,000 ML IV 1,000 ML IV SCH ×2 (05:12→18:42)
[2021-09-27] MEDS: APRESOLINE TAB 25 MG PO SCH ×3 (05:13→21:17)
[2021-09-27 06:12] LABS: BASOPHILS % (AUTO) 0.7 % (0.2-1.0); EOSINOPHILS # (AUTO) 0.2 x10^3/uL (0.0-0.2); EOSINOPHILS % (AUTO) 2.7 % (0.9-2.9); HEMATOCRIT 20.8 % (36.0-47.0); LYMPHOCYTES # (AUTO) 1.9 X10^3/uL (1.3-2.9); LYMPHOCYTES % (AUTO) 30.9 % (21.0-51.0); MEAN CORPUSCULAR HEMOGLOBIN 19.2 pg (27.0-34.0); MEAN CORPUSCULAR HGB CONC 31.8 g/dL (33.0-35.0); MEAN CORPUSCULAR VOLUME 60.4 fL (80.0-100.0); MEAN PLATELET VOLUME 7.5 fL (7.4-11.0); MONOCYTES # (AUTO) 0.3 x10^3/uL (0.3-0.8); MONOCYTES % (AUTO) 5.3 % (0.0-13.0); NEUTROPHILS # (AUTO) 3.7 x10^3/uL (2.2-4.8); NEUTROPHILS % (AUTO) 60.4 % (42.0-75.0); RED BLOOD COUNT 3.44 X10^6/uL (3.5-5.4); WHITE BLOOD COUNT 6.1 X10^3/uL (3.6-10.0)
[2021-09-27 06:22] LABS: ALANINE AMINOTRANSFERASE 15 Units/L (12-78); ALBUMIN 1.6 g/dL (3.4-5.0); ALKALINE PHOSPHATASE 52 Units/L (46-116); ASPARTATE AMINO TRANSFERASE 18 Units/L (15-37); BLOOD UREA NITROGEN 9 mg/dL (7-18); CALCIUM 7.5 mg/dL (8.5-10.1); CARBON DIOXIDE 24.7 mmol/L (21-32); CHLORIDE 109 mmol/L (98-107); COR CA(FOR HYPOALB) 9.4 mg/dL (8.5-10.1); CREATININE 0.53 mg/dL (0.55-1.02); MAGNESIUM 1.8 mg/dL (1.7-2.9); SODIUM 140 mmol/L (136-145); TOTAL PROTEIN 4.6 g/dL (6.4-8.2); eGFR NON BLACK RACES > 60 (>60)
[2021-09-27 06:39] LABS: HEMOGLOBIN 6.6 g/dL (12.0-16.0)
[2021-09-27 07:08] LABS: ANISOCYTOSIS SLIGHT; HYPOCHROMASIA 3+; MICROCYTOSIS 2+; OVALOCYTES PRESENT; PLATELET MORPHOLOGY COMMENT NORMAL (NORMAL); POIKILOCYTOSIS SLIGHT; SCHISTOCYTES PRESENT
[2021-09-27] MEDS ORDERED: INJECTAFER 750 MG in NS 250 ML IV 250 ML IV NR (08:00)
[2021-09-27] MEDS: APRESOLINE INJ 20 MG VIAL IVP PRN ×2 (09:10→22:00)
[2021-09-27] MEDS: PROTONIX TAB 40 MG PO SCH (09:10)
[2021-09-27] MEDS: ZESTRIL TAB 40 MG PO SCH (09:10)
[2021-09-27] MEDS: HEMOCYTE-PLUS PO SCH (09:10)
[2021-09-27] MEDS ORDERED: BENADRYL INJ 50 MG VIAL IVP ONE (10:45)
[2021-09-27] MEDS ORDERED: TYLENOL 325 MG TAB PO ONE ×2 (10:45→23:48)
[2021-09-27] MEDS ORDERED: NS 250 ML IV 250 ML IV ONE ×2 (11:04→17:23)
[2021-09-27 21:52] LABS: HEMATOCRIT 27.1 % (36.0-47.0)
[2021-09-27 21:53] LABS: HEMOGLOBIN 9.2 g/dL (12.0-16.0)
[2021-09-27] MEDS ORDERED: TYLENOL 325 MG TAB PO PRN (23:34)
[2021-09-28] MEDS: APRESOLINE TAB 25 MG PO SCH (05:07)
[2021-09-28 07:28] LABS: BASOPHILS # (AUTO) 0.1 X10^3/uL (0.0-0.1); BASOPHILS % (AUTO) 0.6 % (0.2-1.0); EOSINOPHILS # (AUTO) 0.2 x10^3/uL (0.0-0.2); EOSINOPHILS % (AUTO) 2.2 % (0.9-2.9); HEMATOCRIT 30.2 % (36.0-47.0); HEMOGLOBIN 9.9 g/dL (12.0-16.0); LYMPHOCYTES # (AUTO) 2.1 X10^3/uL (1.3-2.9); LYMPHOCYTES % (AUTO) 24.5 % (21.0-51.0); MEAN CORPUSCULAR HGB CONC 32.6 g/dL (33.0-35.0); MEAN CORPUSCULAR VOLUME 64.3 fL (80.0-100.0); MEAN PLATELET VOLUME 8.2 fL (7.4-11.0); MONOCYTES # (AUTO) 0.4 x10^3/uL (0.3-0.8); MONOCYTES % (AUTO) 5.1 % (0.0-13.0); NEUTROPHILS # (AUTO) 5.9 x10^3/uL (2.2-4.8); NEUTROPHILS % (AUTO) 67.6 % (42.0-75.0); WHITE BLOOD COUNT 8.7 X10^3/uL (3.6-10.0)
[2021-09-28 07:37] LABS: ALANINE AMINOTRANSFERASE 15 Units/L (12-78); ALBUMIN 1.8 g/dL (3.4-5.0); ALKALINE PHOSPHATASE 58 Units/L (46-116); ASPARTATE AMINO TRANSFERASE 18 Units/L (15-37); BLOOD UREA NITROGEN 11 mg/dL (7-18); CALCIUM 8.3 mg/dL (8.5-10.1); CARBON DIOXIDE 23.8 mmol/L (21-32); CHLORIDE 108 mmol/L (98-107); COR CA(FOR HYPOALB) 10.1 mg/dL (8.5-10.1); CREATININE 0.55 mg/dL (0.55-1.02); SODIUM 140 mmol/L (136-145); TOTAL PROTEIN 5.3 g/dL (6.4-8.2); eGFR NON BLACK RACES > 60 (>60)
[2021-09-28 07:44] LABS: ANISOCYTOSIS 2+; MICROCYTOSIS 2+; OVALOCYTES PRESENT; PLATELET MORPHOLOGY COMMENT NORMAL (NORMAL)
[2021-09-28] MEDS: ZESTRIL TAB 40 MG PO SCH (08:37)
[2021-09-28] MEDS: HEMOCYTE-PLUS PO SCH (08:37)
[2021-09-28] MEDS: NS 1,000 ML IV 1,000 ML IV SCH (08:38)
[2021-09-28] MEDS: PROTONIX TAB 40 MG PO SCH (08:38)
[2021-09-28] MEDS ORDERED: PROCARDIA XL PO SCH (09:00)
[2021-09-28 14:43] VITALS: BP 172/92
== END 2021-09-28 14:30 | disposition home or self-care (01) | DRG 313 ==
LOC: ER 08:25 → MED/SURG 08:25
PROVIDERS: ADMIT Internal Medicine; ATTEND Internal Medicine
DX: R07.89 Other chest pain; D50.8 Other iron deficiency anemias; R00.1 Bradycardia, unspecified; K21.9 Gastro-esophageal reflux disease without esophagitis; I16.0 Hypertensive urgency; Z20.822 Contact with and (suspected) exposure to COVID-19; R94.31 Abnormal electrocardiogram [ECG] [EKG]